=== PATIENT | female | born 2005 | race Caucasian/White ===

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

== ENCOUNTER 2023-09-29 01:19 | Emergency (ER) | payer BC, SELFPAY ==
--- NOTE | ~2023-09-29 | CT_ITS ---
Non-contrast CT scan of the Abdomen and Pelvis Clinical indication: Abdominal pain Technique: 2.5 mm axial scans were obtained through the abdomen and pelvis without intravenous or or al contrast. Dose reduction technique was used on this scan by utilizing automated exposure control a nd iterative reconstruction technique. The dose-length product (DLP) was 873.47 mGy-cm. Findings: Images through the lung bases reveal no abnormalities. There is no evidence of renal or ureteral calculi. The kidneys and the ureters are nondilated. The liver, spleen, pancreas, gallbladder, and adrenals appear normal. There is no aortic aneurysm. There is no evidence of bowel obstruction. Normal appendix. Images through the pelvis were performed. There is no evidence of ascites or lymphadenopathy. Urinary bladder unremarkable. Possible 2.3 cm right ovarian cyst. No other pelvic mass seen. Impression: Possible 2.3 cm right ovarian cyst, otherwise unremarkable exam. Consider pelvic ultrasound further e valuation if indicated. Reviewed, dictated and finalized at [facility]. Impression: Possible 2.3 cm right ovarian cyst, otherwise unremarkable exam. Consider pelvi c ultrasound further evaluation if indicated.
[2023-09-29 01:24] VITALS: BP 134/79; PULSE 95; RESP 16; TEMP 36.6; O2SAT 97
[2023-09-29] MEDS: SODIUM CHLORIDE 0.9% IV 1,000 ML 999 ML IV CONT ×2 (01:35→03:44)
[2023-09-29] MEDS: METOCLOPRAMIDE HCL INJ 10 MG/2 ML VIAL IV PUSH (01:36)
[2023-09-29] MEDS: diphenhydrAMINE HCl INJ 50 MG/ML VIAL 25 MG IV PUSH (01:36)
[2023-09-29] MEDS: KETOROLAC 15 MG/ML VIAL (*BKC) IV PUSH (01:36)
[2023-09-29 01:41] LABS: Basophils Percent Auto 0.3 % (0.2-1.2); Eosinophils Absolute Auto 0.1 K/mm3 (0-0.3); Eosinophils Percent Auto 0.7 % (0-4.4); Hematocrit 42.9 % (37.0-47.0); Hemoglobin 14.1 g/dL (12.0-15.0); Immature Granulocyte Absolute 0.02 K/mm3 (0.00-0.031); Immature Granulocyte Percent A 0.2 % (0-0.5); Lymphocytes Percent Auto 4.3 % (18.3-44.2); Mean Corpuscular HGB Conc 32.9 g/dl (32-36); Mean Corpuscular Hemoglobin 28.5 pg (26-34); Mean Corpuscular Volume 86.7 fl (80-100); Mean Platelet Volume 10.7 fl (7.4-10.4); Monocytes Absolute Auto 0.5 K/mm3 (0.1-0.6); Monocytes Percent Auto 4.2 % (2.6-8.5); Neutrophils Absolute Auto 10.5 K/mm3 (1.3-6.7); Neutrophils Percent Auto 90.3 % (45.5-73.1); Platelet Count Result 218 k/mm3 (150-375); Red Blood Count 4.95 M/mm3 (4.2-5.4); Red Cell Distribution Width 12.9 % (11.5-14.5); White Blood Count 11.7 K/mm3 (4.5-10.0)
--- NOTE | 2023-09-29 02:12 | ED.ABDPAIN ---
HPI - Abdominal Pain General Chief Complaint: Abdominal Pain Stated Complaint: abdominal pain and headache Time Seen by Provider: 09/29/23 01:23 History of Present Illness HPI narrative: Patient is a 17-year-old female who presents to the emergency department this morning complaining of nausea, vomiting and diarrhea. Patient states that the symptoms started around 8:00 p.m. last night and she admits that she has not been able to keep anything down. Denies any sick contacts at home or anybody at home with similar symptoms. Patient does complain of some sharp left-sided abdominal pain that comes and goes. Denies any urinary symptoms including dysuria or hematuria. No additional symptoms or concerns at this time. Related Data Home Medications Medication Instructions Recorded Confirmed lisdexamfetamine 30 mg capsule mg PO 06/30/23 06/30/23 risankizumab-rzaa 150 mg/mL 150 mg subcut ONCE 07/20/23 subcutaneous pen injector (Skyrizi) sertraline 50 mg tablet 100 mg PO DAILY 07/20/23 07/20/23 Allergies Allergy/AdvReac Type Severity Reaction Status Date / Time shrimp Allergy Severe vomiting Verified 09/29/23 01:19 Review of Systems Review of Systems: All systems are reviewed and are negative unless stated otherwise in the HPI. [facility] Past Medical History Medical History Anxiety Psoriasis Surgical History Surgical History H/O excision of mass Excisional biopsy posterior neck mass 05/13/21 Pilonidal cyst with abscess 09/25/20 Excision of pilonidal cysts and tracks Family History Family History Father Hypertension Mother Psoriatic arthritis Social History Social History Social History: Single Smoking status: Never smoker Second hand tobacco smoke exposure: No Alcohol intake: never Substance use: never Substance use type: does not use Do You Feel Safe in your Home?: Yes Lack of Transportation: No Lack of Food: Never True Current Housing: I Have Housing Concerned About Future Housing: No Difficulty Paying Gas/Electric Bills: No Difficulty Paying for Meds: No Currently Unemployed: No Education: High School Diploma/GED Difficulty w/ Childcare or Family Care: No Living arrangements: with family Occupation/Education: occupation 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 HEENT: PERRL, no rhinorrhea, no post nasal drip, oropharynx clear. Cardiovascular: Regular rate and rhythm, no murmurs, rubs or gallops, no peripheral edema. Respiratory: Clear to auscultation bilaterally, no tachypnea, no wheezing, no rhonchi, no rubs, no respiratory distress. Abdomen: Soft, nontender in all 4 quadrants, nondistended, no rebound, no guarding, no peritoneal signs. Musculoskeletal: No joint swelling or deformity, normal muscle tone. Skin: No rashes or petechia, no signs of infection. Neurological: Alert and oriented to person, place, and time. Follows all commands. No focal deficits, speech is clear and fluent. Course Vital Signs Vital signs: Vital Signs Temperature 97.9 F 09/29/23 01:24 Pulse Rate 95 09/29/23 01:24 Respiratory Rate 16 09/29/23 01:24 Blood Pressure 134/79 09/29/23 01:24 Pulse Oximetry 97 09/29/23 01:24 Oxygen Delivery Room Air 09/29/23 01:24 Temperature 97.9 F 09/29/23 01:24 Pulse Rate 94 09/29/23 03:45 Respiratory Rate 16 09/29/23 03:45 Blood Pressure 111/73 09/29/23 03:45 Pulse Oximetry 98 09/29/23 03:45 Oxygen Delivery Room Air 09/29/23 01:24
[2023-09-29 02:16] LABS: Influenza A QL RT-PCR Negative (Negative); Influenza B QL RT-PCR Negative (Negative); RSV RNA, RT-PCR Negative (Negative); SARS-CoV-2 RNA PCR Negative (Negative)
[2023-09-29 02:28] LABS: SPREG INTERNAL CONTROL Positive; Serum Qual hCG Negative
[2023-09-29 02:33] LABS: Appearance Urine Clear (Clear); Bacteria Urine None Seen /hpf; Bilirubin Urine Negative (Negative); Blood Urine 2+ (Negative); Color Urine Yellow (Yellow); Glucose Urine UA Negative (Negative); Ketones Urine Trace mg/dL (Negative); Leukocyte Esterase Ur Negative LEU/UL (Negative); Nitrate Urine Negative (Negative); Non Pathogenic Casts 0-2; Protein Urine Negative (Negative); Specific Grav Ur 1.024 (1.001-1.035); Squamous Epithelial Cell Urine None Seen /hpf (Few); WBC Urine 0-5 /hpf (0-3)
[2023-09-29 02:34] LABS: Add Urine Microscopic? YES
[2023-09-29 02:54] LABS: Alanine Aminotransferase 28 U/L (6-35); Albumin Level 4.6 g/dL (3.7-5.6); Alkaline Phosphatase 80 U/L (45-116); Anion Gap 10 mmol/L (4-12); Aspartate Amino Transferase 33 U/L (14-36); Bilirubin,Total 0.9 mg/dL (0.2-1.3); Blood Urea Nitrogen 12 mg/dL (8-21); Calcium 9.2 mg/dL (8.9-10.7); Carbon Dioxide 24 mmol/L (22-30); Chloride 106 mmol/L (98-107); Estimated CRCL calculation 142 ml/min; Estimated Glomerular Filt Rate > 60; Glucose 143 mg/dL (65-110); Lipase 71 U/L (23-300); Potassium 4.1 mmol/L (3.4-5.0); Sodium 140 mmol/L (134-143)
[2023-09-29] MEDS: ONDANSETRON INJ 4 MG/2 ML VIAL IV PUSH (03:42)
[2023-09-29 03:45] VITALS: BP 111/73; PULSE 94; RESP 16; O2SAT 98
[2023-09-29 05:02] VITALS: BP 128/84; PULSE 91; RESP 16; O2SAT 98
== END 2023-09-29 05:04 | disposition home or self-care (01) ==
PROVIDERS: Emergency Provider Emergency Medicine; PCP Family Medicine
DX: K52.9 Noninfective gastroenteritis and colitis, unspecified (principal); Z20.822 Contact with and (suspected) exposure to COVID-19; L40.9 Psoriasis, unspecified; F41.9 Anxiety disorder, unspecified
CPT/HCPCS: 36415; 74176; 80053; 81001; 82248; 83690; 84703; 85025; 87637; 96361; 96374; 96375; 99284; J1200; J1885; J2405; J2765; J7030

== ENCOUNTER 2023-11-19 11:38 | Outpatient (CLI) | payer BC, SELFPAY ==
--- NOTE | ~2023-11-19 | XR_ITS ---
XR chest 2V 11/19/2023 11:46 Indication: Cough, fever and shortness of breath Procedure: 2 view chest Comparison: 05/02/2016 Findings: There is right lower lobe pneumonia with possible cavitation. Heart size normal. Left lung clear. No pleural effusion or pneumothorax. Impression: 1: Right lower lobe pneumonia with possible cavitation. Reviewed, dictated and finalized at location B. Impression: 1: Right lower lobe pneumonia with possible cavitation.
== END 2023-11-19 11:39 ==
LOC: MICIMG 11:39
PROVIDERS: PCP Family Medicine; Visit Provider Student in an Organized Health Care Education/Training Program
DX: R05.9 Cough, unspecified (principal); R50.9 Fever, unspecified; R06.02 Shortness of breath; J18.9 Pneumonia, unspecified organism
CPT/HCPCS: 71046

== ENCOUNTER 2023-11-20 14:15 | Outpatient (CLI) | payer BC, SELFPAY ==
--- NOTE | ~2023-11-20 | CT_ITS ---
EXAMINATION:CT chest high resolution wo wy DATE: 11/20/2023 14:45 INDICATION: Cough and fever. Pneumonia. Other findings on diagnostic imaging. TECHNIQUE: Computed tomography (CT) of the chest was performed without intravenous contrast. Automate d exposure control and iterative reconstruction technique were employed. The dose-length product (DLP ) was 495.26 mGy-cm. COMPARISON: Chest 2 views 11/19/2023 FINDINGS: There is mild atelectasis in right middle lobe. There are groundglass and airspace opacitie s and centrilobular nodules in right lower lobe, consistent with pneumonia. No cavitation. No pleural effusion. The heart size is normal. No pericardial effusion. There is mild right hilar lymphadenopat hy. There is mild splenomegaly, likely secondary to obesity. There is minimal thoracic spondylosis. IMPRESSION: 1. Right lower lobe pneumonia. 2. Mild right hilar lymphadenopathy, likely reactive. Reviewed, dictated and finalized at location A.
== END 2023-11-20 14:16 ==
PROVIDERS: PCP Family Medicine; Visit Provider Student in an Organized Health Care Education/Training Program
DX: R93.89 Abnormal findings on diagnostic imaging of other specified body structures (principal); J18.9 Pneumonia, unspecified organism; R59.0 Localized enlarged lymph nodes
CPT/HCPCS: 71250

== ENCOUNTER 2024-05-27 12:44 | Outpatient (CLI) | payer BC, SELFPAY ==
--- OUTSIDE RECORDS SUMMARY | 2024-05-27 12:48 | XMS_ITS | Clinical Summary ---
Author Organization [facility] Address [address] [place] [address] Care Team Providers Care Basket Machine Operator Name Role Phone Mercy Irwin MD Primary Care Provider Allergies No known active allergies Medications EPINEPHrine 0.3 mg/0.3 mL auto-injection syringeIndicat ions:Anaphylax is Inject 0.3 mL (0.3 mg total) into the muscle as instructed as needed for anaphylaxis 4 each 1 0 Active Additional Information Patient not taking.Reported on 08/25/2022 mometasone (ELOCON) 0.1 % solutionIndica tions:Scalp psoriasis Apply topically daily as needed (psoriasis) For the scalp - stop when rash is gone. 60 mL 2 0 Active clobetasoL (TEMOVATE) 0.05 % ointmentIndica tions:Scalp psoriasis Apply thin layer to affected areas of scalp daily as needed till smooth 60 g 3 1 Active Additional Information Patient not taking.Reported on 03/03/2022 methylphenidat e ER (CONCERTA) 18 mg CR tablet Take 18 mg by mouth every morning 1 Active atomoxetine (STRATTERA) 10 mg capsule Take 10 mg by mouth daily 2 Active atomoxetine (STRATTERA) 18 mg capsule Take 18 mg by mouth daily 2 Active dextroamphetam ine-amphetamin e (ADDERALL) 5 mg tablet Take 5 mg by mouth daily 2 Active escitalopram (LEXAPRO) 10 mg tablet Take 1 tablet (10 mg total) by mouth daily 2 Active ustekinumab (STELARA) injectionIndic ations:Scalp psoriasis Inject 1 mL (90 mg total) under the skin every 3 (three) months 1 mL 1 2 Active calcipotriene (DOVONOX) 0.005 % solutionIndica tions:Plaque Psoriasis Apply topically 2 (two) times a day Mix clobetasol and calcipotriene solution 1:1 and apply to rash on scalp twice a day 60 mL 3 2 Active Additional Information Patient not taking.Reported on 08/25/2022 clobetasoL (TEMOVATE) 0.05 % external solutionIndica tions:Dermatos is of the Scalp Apply topically 2 (two) times a day Mix clobetasol and calcipotriene solution 1:1 and apply to rash on scalp twice a day 50 mL 3 2 Active mupirocin (BACTROBAN) 2 % ointmentIndica tions:Minor Bacterial Skin Infections Apply topically 2 (two) times a day Psoriasis behind ears 22 g 3 3 Active mometasone (ELOCON) 0.1 % ointmentIndica tions:Psoriasi s vulgaris Apply topically 2 (two) times a day Psoriasis behind ears 45 g 3 3 Active ixekizumab (Taltz Autoinjector) auto-injectorI ndications:Pso riasis vulgaris INJECT ONE PEN SUBCUTANEOUSLY EVERY 4 WEEKS. REFRIGERATE. ALLOW PEN TO REACH ROOM TEMP PRIOR TO INJECTION. 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 Pain of both shoulder joints 12/21/2017 Arthralgia of both hands 12/21/2017 Psoriasis vulgaris 12/21/2017 Resolved Problems Problem Noted Date Diagnosed Date Resolved Date Adalimumab (Humira) long-term use 06/06/2020 11/17/2021 On etanercept therapy 09/05/20182020 Family History Medical History Relation Name Comments Depression Father Hypertension Father Anxiety disorder Mother Rheum arthritis Mother Depression Paternal Grandmother Relation Name Status Comments Father Mother Paternal Grandmother Social History Tobacco Use Types Packs/Day Years Used Date Smoking Tobacco: Never Smokeless Tobacco: Never Tobacco Cessation:Counseling Given: Not Answered Alcohol Use Standard Drinks/Week Comments No 0 (1 standard drink = 0.6 oz pur e alcohol) PHQ-2 Answer Date Recorded PHQ-2 Total Score (If total score is 3 or more points, staff should administer the PHQ-9) 2 05/03/2020 Comments No Sex and Gender Information Value Date Recorded Sex Assigned at Not on file Legal Sex Female 11:16 AM CDT Gender Identity Not on file Sexual Orientation Not on file Obstetrics History Last Filed Vital Signs Vital Sign Reading Time Taken Comments Blood Pressure 130/80 03/17/2022 8:03 AM GROUNDS CREW SUPERVISOR Pulse 104 03/17/2022 8:03 AM GROUNDS CREW SUPERVISOR Temperature 36.8 ??C (98.2 ??F) 03/17/2022 8:03 AM CS T Respiratory Rate 20 02/17/2020 8:25 AM CDT Oxygen Saturation 98% 03/17/2022 8:03 AM GROUNDS CREW SUPERVISOR Inhaled Oxygen Concentration - - Weight 96.6 kg (213 lb) 08/25/2022 8:33 AM CDT Height 161 cm (5' 3.39 ) 08/25/2022 8:33 AM CDT Body Mass Index 37.27 08/25/2022 8:33 AM CDT Plan of Treatment Health Maintenance Due Date Last Done Comments HPV Vaccines (1 - 3-dose series) 12/29/2018 Meningococcal B Vaccine (1 o f 2 - Patient Seeks Protection) 2019 Depression Screening 05/03/2021 05/03/2020, 05/03/2020, 03/09/2020, Additional history exists Regular Well Visit/Exam 18-64 12/29/2021 Covid-19 Vaccine (2023-2 5 season) 2023 05/24/2021, 07/14/2020, 06/23/2020 Influenza Vaccine (#1) 2023 2, 05/24/2021, 02/16/2018, Additional history exists DTaP/Tdap/Td Vaccine (7 - Td or Tdap) 11/26/2025 11/27/2015, 12/06/2008, 04/07/2007, Additional history exists Pneumococcal vaccine <65 Completed 12/21/2007 Varicella Vaccines Completed 12/06/2008, 04/07/2007 Hepatitis C Screening Completed 02/17/2018 Meningococcal Vaccine Completed 02/11/2022, 016 Goals Goal Patient Goal Type Associated Problems Recent Progress Patient-Stated? Author BH-Adherence Behavioral Health Improving( 3:06 PM CDT) No Sobeida Evans, PhD Note: Increase consistency in implementing health behavior goals -Adjustment and Coping Behavioral Health Improving( 3:06 PM CDT) No Sobeida Evans, PhD Note: Increase adaptive cognitive and behavioral coping skills -Behavior Behavioral Health Improving( 3:06 PM CDT) No Sobeida Evans, PhD Note: Implement a structured meal/snack schedule [facility] Goals Weight No Thelma Rodríguez MD Note: NUTRITION GOALS: PHYSICAL ACTIVITY GOALS: Goal of 60 minutes of physical activity 7 days per week Goal is to exercise 30 minutes, 4 days per week. Ideally, do a mix of aerobic exercises and strength training. Goal to take a walk with mom for a loop around the neighborhood for 3 days per week. SLEEP GOALS: Sleep goal: 9-10 hours per night Goal bedtime: 10pm Turn off all electronic devices 30 minutes prior to bedtime - will try reading starting at 9:30pm Look into getting a sound machine. SCREEN TIME GOALS: Turn off ALL screens while eating Limit all sedentary screen time to 30 minutes maximum and then get up and be active for 10 minutes FOLLOW UP: Please obtain HgbA1c at your visit with Dr. Bailey. Questions for Dr. Rodríguez - Allergy clinic number: [phone] Procedures Procedure Name Priority Date/Time Associated Diagnosis Comments HEPATITIS C ANTIBODY Routine 02/17/2018 9:52 AM CDT Long-term use of high-risk medication from Last 3 Months or Most Recently Relevant to Health Maintenance Results * Hepatitis C antibody (02/17/2018 9:52 AM CDT) Hep C Ab Nonreactive Nonreactive [facility] Comment: Interpretive Data Positive results should be confirmed by a molecular method. If positive, a second separately collected sample should be submitted for Hepatitis C Virus (HCV) RNA Detection and Quantitation by Real-Time Reverse Mandrel Press Hand-PCR (RT-PCR). Current interpretive data was last revised on 2016. Testing performed by: [facility], [address] [place]., [address] Blood specimen (specimen) 02/17/2018 9:52 AM CDT 02/17/2018 11:33 AM CDT Narrative [facility] - 02/17/2018 1:02 PM CDT Sloane Bailey MD LAB MICROBI OLOGY - GENERAL ORDERABLES Edited Result - Final [facility] Department [place] [address] from Last 3 Months or Most Recently Relevant to Health Maintenance Insurance [facility] FEDERAL [facility] FEDERAL [facility] FEDERAL [employer] TRADITIONAL Care Teams Basket Machine Operator Relationship Specialty Start Date End Date Mercy Irwin MD [address] [place] [address] PCP - General Family Medicine 03/03/22
--- OUTSIDE RECORDS SUMMARY | 2024-05-27 12:48 | XMS_ITS | Referral Summary ---
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 Rodríguez - Allergy clinic number: [phone] Procedures Procedure Name Priority Date/Time Associated Diagnosis Comments HEPATITIS C ANTIBODY Routine 02/17/2018 9:52 AM CDT Long-term use of high-risk medication from Last 3 Months or Most Recently Relevant to Health Maintenance Results * Hepatitis C antibody (02/17/2018 9:52 AM CDT) Hep C Ab Nonreactive Nonreactive [facility] Comment: Interpretive Data Positive results should be confirmed by a molecular method. If positive, a second separately collected sample should be submitted for Hepatitis C Virus (HCV) RNA Detection and Quantitation by Real-Time Reverse Asbestos Worker-PCR (RT-PCR). Current interpretive data was last revised on 2016. Testing performed by: [facility], [address] [place]., [address] Blood specimen (specimen) 02/17/2018 9:52 AM CDT 02/17/2018 11:33 AM CDT Narrative [facility] - 02/17/2018 1:02 PM CDT us Sloane Bailey MD LAB MICROBI OLOGY - GENERAL ORDERABLES Edited Result - Final [facility] [place] [address] from Last 3 Months or Most Recently Relevant to Health Maintenance Insurance [facility] FEDERAL [facility] Member Subscriber Plan / Payer ( fective 2018-Present) Name:Fatoumata Singh Relation to Subscriber:Other Relationship Name:ASIM SINGH Date of :1977 (Home) Address: [address] [place] [address] Payer ID:[id number] (NAIC) Group ID:[id number] Type:[employer] Address: [address] [facility]ERAL [facility] Member Subscriber Plan / Payer ( fective 2018-Present) Name:Reilly Singhaila Relation to Subscriber:Other Relationship Name:SAMANTHAASIM MCKEON Date of :1977 (Home) Address: [address] [place] [address] Payer ID:[id number] (NAIC) Group ID:[id number] Type:[employer] Address: [address] Member Subscriber Plan / Payer (Ef fective 2007-Present) Name:Reilly Singhaila Relation to Subscriber:Child Name:SAMANTHAASIMMARY JANE Date of :[birth year]99 Address: [address] [place] [address] Payer ID:[id number] (NAIC) Group ID:[id number] Type:[employer] Address: [address] [place] [id number] Care Teams Billboard Poster Relationship Specialty Start Date End Date Mercy Irwin MD [address] [facility] [address] [place] [address] PCP - General Family Medicine 03/03/22
[2024-05-27 13:33] LABS: Influenza A QL RT-PCR Positive (Negative); Influenza B QL RT-PCR Negative (Negative); RSV RNA, RT-PCR Negative (Negative); SARS-CoV-2 RNA PCR Negative (Negative)
== END 2024-05-27 12:45 | disposition home or self-care (01) ==
LOC: ANHLAB 12:46
PROVIDERS: PCP Family Medicine; Visit Provider Physician Assistant
DX: R50.9 Fever, unspecified (principal); Z20.822 Contact with and (suspected) exposure to COVID-19
CPT/HCPCS: 87637

== ENCOUNTER 2024-06-07 14:01 | Outpatient (CLI) | payer BC, SELFPAY ==
--- NOTE | ~2024-06-07 | XR_ITS ---
EXAMINATION: XR chest 2V 06/07/2024 14:27 INDICATION: Cough PROCEDURE: 2 view chest COMPARISON: 11/19/2023 FINDINGS: The lungs are clear. The cardiomediastinal silhouette is within normal limits. There are no pleural effusions. There is no pneumothorax suspected. IMPRESSION: 1: NO ACUTE CARDIOPULMONARY DISEASE. Reviewed, dictated and finalized at location B. NO CAGE SUPERVISOR
== END 2024-06-07 14:02 | disposition home or self-care (01) ==
LOC: MICIMG 14:02
PROVIDERS: PCP Family Medicine; Visit Provider Student in an Organized Health Care Education/Training Program
DX: R05.9 Cough, unspecified (principal)
CPT/HCPCS: 71046